=== PATIENT | female | born 1990 | race Two or more races ===

== ENCOUNTER 2024-04-04 16:15 | Emergency (ER) | payer OTHER ==
[~2024-04-04] VITALS: Ht 172.7 cm; Wt 100.4 kg
[2024-04-04 17:01] LABS: Basophils # (auto) 0 10 ^3/uL (0-0.2); Basophils % (auto) 0.5 % (0.0-2.0); Eosinophils # (auto) 0.1 10 ^3/uL (0-0.8); Eosinophils % (auto) 1.2 % (0.0-7.0); Hematocrit 38.2 % (36.0-46.0); Hemoglobin 12.7 g/dL (12.2-16.2); Lymphocytes # (auto) 1.6 10 ^3/uL (0.4-5.4); Lymphocytes % (auto) 15.7 % (10.0-50.0); Mean Corpuscular Hemoglobin 28.2 pg (28.0-32.0); Mean Corpuscular Hgb Conc. 33.2 g/dL (32.0-36.0); Mean Corpuscular Volume 84.8 fL (80.0-100.0); Monocytes # (auto) 0.6 10 ^3/uL (0-1.3); Neutrophils # (auto) 7.8 10 ^3/uL (1.6-8.6); Neutrophils % (auto) 76.6 % (37.0-80.0); Platelet Count (auto) 525 10^3/uL (140-450); Red Blood Cells 4.51 10^6/uL (4.0-5.20); Red Cell Distribution Width 14.1 % (11.8-14.3); White Blood Cell 10.2 10^3/uL (4.4-10.8)
--- NOTE | 2024-04-04 17:01 | DVH ---
CHEST RADIOGRAPH Indication: chest pain Technique: Single frontal view of the chest was obtained Comparison: None FINDINGS: Lines and Tubes: None Lungs: Increased tissue density over the right lower lung field. Be secondary to the overlying breast or pulmonary airspace disease consider lateral chest x-ray for further evaluation. Pleura: No effusion. No pneumothorax. Cardiomediastinal contours: Unremarkable Bones: No acute osseous abnormality. IMPRESSION: 1. Increased density right lower lobe. This may be due to overlying breast tissue or pulmonary airsp leigh disease. 2. Consider lateral chest film for further evaluation. HS:Y
[2024-04-04 17:02] LABS: Alanine Aminotransferase 12 U/L (7-40); Alkaline Phosphatase 56 U/L (46-116); Anion Gap 10 (5-15); Carbon Dioxide 24 mmol/L (20-31); Chloride 105 mmol/L (98-107); Glucose 99 mg/dL (74-106); Sodium 139 mmol/L (136-145)
[2024-04-04 17:03] LABS: Albumin 4.9 g/dL (3.2-4.8); Aspartate Aminotransferase 10 U/L (13-40); Bilirubin, Total 0.3 mg/dL (0.2-1.0); Blood Urea Nitrogen 8 mg/dL (9-23); Calcium 10.9 mg/dL (8.7-10.4); Potassium 3.4 mmol/L (3.5-5.1)
[2024-04-04 17:09] LABS: Urine Bacteria MOD /hpf (None Seen); Urine Blood 2+ /uL (Negative); Urine Budding Yeast FEW /hpf (None Seen); Urine Clarity Turbid (Clear); Urine Color Yellow (Yellow); Urine Mucus FEW (None Seen); Urine Protein, UAD 1+ (Negative); Urine Specific Gravity 1.023 (1.001-1.035); Urine Squamous Epithelial Cell MOD /hpf (<5); Urine Urobilinogen Normal (Negative); Urine WBC 119 /hpf (0 - 5)
--- NOTE | 2024-04-04 19:00 | ED.PDOC ---
History of Present Illness HPI Comments 33 y/o F, with a history of thyroid disease and obesity, presents with complaint of intermittent, sharp and pressure-like chest pain for the past 6 months, today. Patient endorses on coming to [facility] Emergency Department due to still having pain and concern after being discharged from [facility] Emergency Department, this morning, at around 0500. She comments on being seen at aforementioned facility for her complaint, last night, and being told, initially, on having elevated troponin levels. Patient then informs on being told by staff there on on troponin values being an error with their measuring devices and that her levels were, actually, normal prior to being discharged with "heartburn" and "anxiety" diagnosis. She reports no recent injuries, strenuous activities, sick contact, or other relevant or pertinent information. Patient denies having any shortness of breath, palpitations, dizziness, nausea, vomiting, fever, chills, or other associated symptoms or modifiers at this time. Chief Complaint: Chest Pain Time Seen by MD: 16:25 Reviewed Notes: Nurses Notes, Medications, Allergies Allergies: Coded Allergies: Latex (Verified Allergy, Unknown, 04/04/24) Penicillins (Verified Allergy, Unknown, 04/04/24) Information Source: Patient Mode of Arrival: Ambulatory Severity: Moderate Timing: Months Duration: Intermittent Prehospital treatment: None Past Medical History PAST MEDICAL HISTORY: Thyroid Past Medical History (Other): obesity Surgical History: Denies all surgeries [employer] History: Denies all [employer] Hx Family History Family History: Unknown Social History Smoker: Non-Smoker Alcohol: Denies ETOH Use Drugs: Denies Drug Use Lives In: Home Cardiovascular: reports: chest pain All Other Systems: Reviewed and Negative (negative unless otherwise stated above or in HPI) Physical Exam General Appearance: No Apparent Distress, Obese HEENT: Normal ENT Inspection, Pharynx Normal, TMs Normal Neck: Full Range of Motion, Non-Tender, Normal, Normal Inspection Respiratory: Chest Non-Tender, Lungs Clear, No Accessory Muscle Use, No Respiratory Distress, Normal Breath Sounds Cardiovascular: No Edema, No JVD, No Murmur, No Gallop, Normal Peripheral Pulses, Regular Rate/Rhythm Breast Exam: Deferred Gastrointestinal: No Organomegaly, Non Tender, No Pulsatile Mass, Normal Bowel Sounds, Soft Genitalia: Deferred Pelvic: Deferred Rectal: Deferred Extremities: No calf tenderness, Normal capillary refill, Normal inspection, Normal range of motion, Non-tender, No pedal edema Musculoskeletal : Apperance: Normal Neurologic: Alert, currency examiner II-XII nml as Tested, No Motor Deficits, Normal Affect, Normal Mood, No Sensory Deficits Cerebellar Function: Normal Reflexes: Normal Skin: Dry, Normal Color, Warm Lymphatic: No Adenopathy Was a procedure done? Was a procedure done?: No EKG EKG : Pulse Rate (adult): 91 [place]: Normal Cardiac Rhythm: NSR Block: None Hypertrophy: None ST: Normal Differential Dx Considerations may include: DC, PE, ACS, costochondritis, pericarditis, gastritis, gastroenteritis, viral syndrome, anxiety, angina X-Ray, Labs, Meds, VS Vital Signs Date Time Temp Pulse Resp B/P (MAP) Pulse Ox O2 Delivery O2 Flow Rate FiO2 04/04/24 19:00 91 04/04/24 16:34 98.3 88 17 138/95 (109) 97 04/04/24 16:25 91 Lab Test 04/04/24 17:20 04/04/24 16:30 04/04/24 16:29 Range/Units Troponin I High Sensitivity < 3 L < 3 L </=34 ng/L White Blood Count 10.2 4.4-10.8 10^3/uL Red Blood Count 4.51 4.0-5.20 10^6/uL Hemoglobin 12.7 12.2-16.2 g/dL Hematocrit 38.2 36.0-46.0 % Mean Corpuscular Volume 84.8 80.0-100.0 fL Mean Corpuscular Hemoglobin 28.2 28.0-32.0 pg Mean Corpuscular Hemoglobin Concent 33.2 32.0-36.0 g/dL Red Cell Distribution Width 14.1 11.8-14.3 % Platelet Count 525 H 140-450 10^3/uL Mean Platelet Volume 6.5 L 6.9-10.8 fL Neutrophils (%) (Auto) 76.6 37.0-80.0 % Lymphocytes (%) (Auto) 15.7 10.0-50.0 % Monocytes (%) (Auto) 6.0 0.0-12.0 % Eosinophils (%) (Auto) 1.2 0.0-7.0 % Basophils (%) (Auto) 0.5 0.0-2.0 % Neutrophils # (Auto) 7.8 1.6-8.6 10 ^3/uL Lymphocytes # (Auto) 1.6 0.4-5.4 10 ^3/uL Monocytes # (Auto) 0.6 0-1.3 10 ^3/uL Eosinophils # (Auto) 0.1 0-0.8 10 ^3/uL Basophils # (Auto) 0 0-0.2 10 ^3/uL Nucleated Red Blood Cells 0.0 % D-Dimer, Quantitative < 0.19 0.0-0.49 mg/L FEU Sodium Level 139 136-145 mmol/L Potassium Level 3.4 L 3.5-5.1 mmol/L Chloride Level 105 98-107 mmol/L Carbon Dioxide Level 24 20-31 mmol/L Anion Gap 10 5-15 Blood Urea Nitrogen 8 L 9-23 mg/dL Creatinine 0.80 0.550-1.02 mg/dL Glomerular Filtration Rate Calc 101 >90 mL/min BUN/Creatinine Ratio 10.0 10.0-20.0 Serum Glucose 99 74-106 mg/dL Calcium Level 10.9 H 8.7-10.4 mg/dL Total Bilirubin 0.3 0.2-1.0 mg/dL Aspartate Amino Transferase (AST) 10 L 13-40 U/L Alanine Aminotransferase (ALT) 12 7-40 U/L Alkaline Phosphatase 56 46-116 U/L Total Protein 8.0 5.7-8.2 g/dL Albumin 4.9 H 3.2-4.8 g/dL Urine Color Yellow Yellow Urine Clarity Turbid H Clear Urine pH 6.0 5.0-9.0 Urine Specific [place] 1.023 1.001-1.035 Urine Protein 1+ H Negative Urine Ketones Trace Negative Urine Blood 2+ H Negative /uL Urine Nitrite 2+ H Negative Urine Bilirubin Negative Negative Urine Urobilinogen Normal Negative mg/dL Urine Leukocyte Esterase 3+ Negative /uL Urine RBC 18 0 - 4 /hpf Urine WBC 119 0 - 5 /hpf Urine Squamous Epithelial Cells Mod <5 /hpf Urine Bacteria Mod H None Seen /hpf Urine Mucus Few None Seen Urine Yeast (Budding) Few None Seen /hpf Urine Glucose Normal Normal mg/dL [facility] [place] [id number] [place] [id number] Ph: [phone] DIAGNOSTIC IMAGING Diagnostic Imaging Report : [id number] Signed PATIENT: SONIDO ECHAVARRIA ACCT: [id number] UNIT: [id number] : 1990 LOC: ER ROOM / BED: / AGE / SEX: 33 / F ADM STATUS: REG ER SERVICE 162 ORDERING PHYSICIAN: MORRIS HAYS PROCEDURE(s): CXRP - CHEST PORTABLE REASON: chest pain ORDER NUMBER(s): [id number], ACCESSION NUMBER(s): [id number] CHEST RADIOGRAPH Indication: chest pain Technique: Single frontal view of the chest was obtained Comparison: None FINDINGS: Lines and Tubes: None Lungs: Increased tissue density over the right lower lung field. Be secondary to the overlying breast or pulmonary airspace disease consider lateral chest x-ray for further evaluation. Pleura: No effusion. No pneumothorax. Cardiomediastinal contours: Unremarkable Bones: No acute osseous abnormality. IMPRESSION: 1. Increased density right lower lobe. This may be due to overlying breast tissue or pulmonary airspace disease. 2. Consider lateral chest film for further evaluation. HS:Y ATED BY: ANTONINO NICOLE Jr., DO DICTATED DATE/TIME: 04/04/241658 SIGNED BY: ANTONINO NICOLE Jr., SIGNED DATE/TIME: 04/04/241658 CC: X-Ray, Labs, Meds, VS Comment Imaging: X-rays and CT scans were reviewed and interpreted by this provider, imaging shows no fractures and no pathological disease. Pending radiology review. Laboratory: Labs reviewed and interpreted by this provider. No significant abnormalities noted. Patient has prior medical visits reviewed. Med reconciliation performed Vital signs reviewed Time of 1ST Reevaluation: 16:55 Reevaluation 1ST: Unchanged Patient Education/Counseling: Diagnosis, Treatment, Need For Follow Up (Follow up with PCP in the next 2-4 days.) Family Education/Counseling: No Family Present Additional Information The following tests were ordered, and results were reviewed by me: EKG, TROPONIN, UA, D-DIMER, CMP, CBC, CXR I reviewed and agreed with the following test results read by other providers: CXR I discussed treatment and results with medical personnel Departure 1 Departure Time of Disposition: 19:19 Impression: Primary Impression: Musculoskeletal chest pain Disposition: HOME / SELF CARE / HOMELESS Condition: Fair Discharged With: Self Critical Care Note Critical Care Time?: No Stability Stability form required: No Heart Score Heart Score: Heart Score Response (Comments) Value History Slightly Suspicious 0 EKG Normal 0 Age <45 0 Risk Factors 1 or 2 risk factors 1 Troponin Normal limit 0 Total 1 I personally scribed for MORRIS HAYS ([email or web address]) on 04/04/24 at 19:00. Electronically submitted by Farzad Tovar ([email or web address]). MORRIS HAYS Apr 04, 2024 19:00
[2024-04-04] MEDS ORDERED: NITR-87 PO (19:22)
[2024-04-04 19:55] VITALS: BP 149/90; PULSE 84; RESP 18; TEMP 97.8; O2SAT 98
--- NOTE | 2024-04-05 09:55 | ECG ---
[facility] Test Date: 2024-04-04 Test Time: 16:25:10 Pat Name: SONIDO ECHAVARRIA Department: ER Room: Gender: F [employer]: DEO : 1990 Requested By: MORRIS HAYS Order Number: [id number] Reading MD: Measurements Intervals [place] Rate: 91 P: 38 AR: 138 QRS: 11 QRSD: 84 T: -5 QT: 363 QTc: 447 Interpretive Statements Sinus rhythm Please click the below link to view image of tracing.
== END 2024-04-04 19:56 | disposition home or self-care (01) ==
LOC: ER 16:15
DX: R07.89 Other chest pain (principal); E03.9 Hypothyroidism, unspecified; Z88.0 Allergy status to penicillin; Z88.8 Allergy status to other drugs, medicaments and biological substances
CPT/HCPCS: 36415; 71045; 80053; 81001; 84484; 85025; 85379; 93005